=== PATIENT | male | born 1960 | race American Indian/Alaskan Native ===

== ENCOUNTER 2017-05-22 19:45 | Emergency (ER) | payer OTHER ==
[2017-05-22 22:17] LABS: Basophils % (Auto) 0.7 % (0.0-1.8); Eosinophils # (Auto) 0.5 K/mm3 (0.0-0.4); Eosinophils % (Auto) 7.3 % (0.0-4.3); Hematocrit 40.5 % (35.5-45.6); Hemoglobin 13.4 gm/dl (11.8-15.2); Lymphocytes % (Auto) 44.4 % (13.4-35.0); Mean Corpuscular HGB Conc 33 % (32-34); Mean Corpuscular Hemoglobin 31 pg (28-32); Mean Corpuscular Volume 93 fl (84-94); Monocytes # (Auto) 0.5 K/mm3 (0.0-0.8); Monocytes % (Auto) 7.8 % (0.0-7.3); Platelet Count 253 K/mm3 (140-440); Red Blood Count 4.35 M/mm3 (3.65-5.03); Red Cell Distribution Width 14.1 % (13.2-15.2)
[2017-05-22 22:32] LABS: Alanine Aminotransferase 12 units/L (7-56); Albumin 4.1 g/dL (3.9-5); BUN/Creatinine Ratio 18; Blood Urea Nitrogen 16 mg/dL (9-20); Hemolysis Index 4; Lipase 111 units/L (13-60)
--- NOTE | 2017-05-22 23:26 | XRay Report ---
FINAL REPORT PROCEDURE: Abdomen. TECHNIQUE: Supine and upright views. HISTORY: Abdominal pain. COMPARISON: No prior studies are available for comparison. FINDINGS: The bowel gas pattern is normal. There are no signs of obstruction. There is no evidence of pneumoperitoneum. The soft tissues are unremarkable. There are degenerative changes throughout the lumbar spine. There is osteoarthritis involving both hip joints. IMPRESSION: Degenerative disease as described. No evidence of acute abdominal disease.
[2017-05-22 23:54] LABS: Bilirubin,Urine NEG (Negative); Blood,Urine MOD (Negative); Color,Urine Yellow (Yellow); Mucus,Urine 2+ /HPF; Nitrite,Urine NEG (Negative); Protein,Urine <15 mg/dL mg/dL (Negative); Urobilinogen,Urine < 2.0 mg/dL (<2.0)
--- NOTE | 2017-05-23 07:57 | Emergency Department Report ---
ED Abdominal Pain HPI - General Chief Complaint: Abdominal Pain Stated Complaint: ABDOMINAL PAIN,CONSTIPATION Time Seen by Provider: 05/23/17 07:43 Source: patient Mode of arrival: Ambulatory Limitations: No Limitations - History of Present Illness Initial Comments: Patient is 57-year-old male with no significant positive medical history presented to the ER with a chief complaint of left LOWER QUADRANT PAIN FOR THE LAST 3 WEEKS ASSOCIATED WITH CONSTIPATION. PATIENT STATED THAT HE DID NOT HAVE ANY BOWEL MOVEMENT FOR THE LAST 3 WEEKS. HE REPORTED THAT HE IS HAVING TROUBLE EATING BECAUSE OF THE SORENESS WHEN HE EATS HE WILL THE PAIN. Patient reported some loss of weight patient attributed that to his not eating well. Patient denied any fever, nausea or vomiting no diarrhea. MD Complaint: abdominal pain -: Gradual, week(s) Location: LUQ, LLQ Radiation: none Severity scale (0 -10): 0 Quality: fullness, sharp Improves With: bowel movement Worsens With: eating Associated Symptoms: denies other symptoms - Related Data Home Medications Medication Instructions Recorded Confirmed Last Taken No Known Home Medications [No 05/22/17 05/22/17 Unknown Reported Home Medications] Allergies Allergy/AdvReac Type Severity Reaction Status Date / Time No Known Allergies Allergy Unverified 05/22/17 22:03 ED Review of Systems ROS: Stated complaint: ABDOMINAL PAIN,CONSTIPATION Other details as noted in HPI Comment: All other systems reviewed and negative Respiratory: denies: cough, shortness of breath, SOB with exertion Cardiovascular: denies: chest pain, palpitations Gastrointestinal: abdominal pain, constipation. denies: nausea, vomiting, diarrhea, hematemesis, melena, hematochezia Neurological: denies: headache, weakness, numbness, paresthesias ED Past Medical Hx - Past Medical History Hx Hypertension: Yes Additional medical history: Chronic Back Pain - Surgical History Past Surgical History?: No - Social History Smoking Status: Current Every Day Smoker Substance Use Type: Alcohol - Medications Home Medications: Home Medications Medication Instructions Recorded Confirmed Last Taken Type No Known Home Medications [No 05/22/17 05/22/17 Unknown History Reported Home Medications] ED Physical Exam - General Limitations: No Limitations General appearance: alert, in no apparent distress - Head Head exam: Present: atraumatic, normocephalic, normal inspection - Eye Eye exam: Present: normal appearance, PERRL - ENT ENT exam: Present: normal exam, normal orophraynx, mucous membranes moist - Neck Neck exam: Present: normal inspection, full ROM. Absent: tenderness, meningismus, lymphadenopathy - Respiratory Respiratory exam: Present: normal lung sounds bilaterally. Absent: respiratory distress, wheezes, rales, rhonchi, stridor, chest wall tenderness, accessory muscle use, decreased breath sounds, prolonged expiratory - Cardiovascular Cardiovascular Exam: Present: regular rate, normal rhythm, normal heart sounds - GI/Abdominal GI/Abdominal exam: Present: soft, tenderness (left upper and lower quadrant tenderness), normal bowel sounds. Absent: distended, guarding, rebound, rigid, organomegaly, mass, bruit, pulsatile mass, hernia - Extremities Exam Extremities exam: Present: normal inspection, full ROM, normal capillary refill. Absent: tenderness, pedal edema, calf tenderness - Back Exam Back exam: Present: normal inspection, full ROM. Absent: tenderness, CVA tenderness (R), CVA tenderness (L), muscle spasm, paraspinal tenderness, vertebral tenderness - Neurological Exam Neurological exam: Present: alert, oriented X3, CN II-XII intact, normal gait, reflexes normal. Absent: abnormal gait, motor sensory deficit - Skin Skin exam: Present: warm, intact, normal color. Absent: cyanosis, diaphoretic, erythema ED Course Vital Signs 05/22/17 05/22/17 05/23/17 21:39 21:55 03:07 Temperature 98.0 F 98 F 97.8 F Pulse Rate 70 66 55 L Respiratory 18 16 18 Rate Blood Pressure 156/99 156/99 132/83 Blood Pressure [Left] O2 Sat by Pulse 100 100 98 Oximetry 05/23/17 07:06 Temperature 98.1 F Pulse Rate 57 L Respiratory 18 Rate Blood Pressure Blood Pressure 112/89 [Left] O2 Sat by Pulse 98 Oximetry ED Medical Decision Making - Lab Data Result diagrams: 05/22/17 22:08 05/22/17 22:08 - Radiology Data Radiology results: report reviewed Referring Physician: ESCOBAR GANDARA Patient Name: LIYA CAMERON Date of : 1960 Sex: Male Report Date: 2017-05-23 Report Status: [place] [id number] Cat Scan Report Signed Patient: LIYA CAMERON MR#: [id number] : 1960 Acct:[id number] Age/Sex: 57 / M ADM Date: 05/22/17 Loc: ED Attending Dr: Ordering Physician: ESCOBAR GANDARA Date of Service: 05/23/17 Procedure(s): CT abdomen pelvis w con Accession Number(s): [id number] cc: ESCOBAR GANDARA CT ABDOMEN PELVIS WITH CONTRAST: HISTORY: abdominal pain. COMPARISON: none. TECHNIQUE: Helical CT in 1.25mm intervals following IV contrast. Sagittal and coronal reconstructions. FINDINGS: Lung bases: Normal. Liver: Normal. Biliary system: Normal. Pancreas: Normal. Spleen: Normal. Kidneys/ureters/bladder: Normal. Adrenal glands: Normal. Aorta: Mild diffuse calcifications. No aneurysm or signs of dissection. Intestines: Within normal limits. Appendix: Normal. Pelvic viscera: Normal. Ascites: None. Adenopathy: None. Musculoskeletal: Moderate thoracolumbar spondylosis. No fracture or suspicious bony lesion. IMPRESSION: No acute abdominal process is appreciated. Transcribed By: TTR Dictated By: ISIS REID JR, MD Electronically Authenticated By: ISIS REID JR, MD Signed Date/Time: 05/23/17953 DD/ 2 TD/TT: 05/23/17953 - Medical Decision Making Patient stated that he is feeling much better. Pants completely resolved. I informed him about his CT abdomen and pelvis results and the need to follow-up with his primary care physician for possible referral for colonoscopy. Critical care attestation.: If time is entered above; I have spent that time in minutes in the direct care of this critically ill patient, excluding procedure time. ED Disposition Clinical Impression: Abdominal pain, Constipation Disposition: -01 TO HOME OR SELFCARE Is pt being admited?: No Condition: Stable Instructions: Abdominal Pain (ED), High Fiber Diet (ED), Constipation (ED) Referrals: CHELLE CARSON MD [Primary Care Provider] - 3-5 Days
--- NOTE | 2017-05-23 10:00 | Cat Scan Report ---
CT ABDOMEN PELVIS WITH CONTRAST: HISTORY: abdominal pain. COMPARISON: none. TECHNIQUE: Helical CT in 1.25mm intervals following IV contrast. Sagittal and coronal reconstructions. FINDINGS: Lung bases: Normal. Liver: Normal. Biliary system: Normal. Pancreas: Normal. Spleen: Normal. Kidneys/ureters/bladder: Normal. Adrenal glands: Normal. Aorta: Mild diffuse calcifications. No aneurysm or signs of dissection. Intestines: Within normal limits. Appendix: Normal. Pelvic viscera: Normal. Ascites: None. Adenopathy: None. Musculoskeletal: Moderate thoracolumbar spondylosis. No fracture or suspicious bony lesion. IMPRESSION: No acute abdominal process is appreciated.
[2017-05-23 11:17] VITALS: BP 151/110
== END 2017-05-23 11:12 | disposition home or self-care (01) ==
LOC: ED 19:45
DX: K59.00 Constipation, unspecified (principal); I10 Essential (primary) hypertension; M54.5 Low back pain; G89.29 Other chronic pain; F17.200 Nicotine dependence, unspecified, uncomplicated
CPT/HCPCS: 36415; 74019; 74177; 80053; 81001; 83690; 85025; 99284; Q9967

== ENCOUNTER 2021-07-27 18:52 | Emergency (ER) | payer SELFPAY ==
[2021-07-27] MEDS ORDERED: HYOSCYAMINE SUBL 0.125 MG TAB SL ONE (22:09)
--- NOTE | 2021-07-28 02:12 | XRay Report ---
CHEST AND ABDOMINAL SERIES HISTORY: Right flank pain. Chest one view: Heart size is normal. Elevation of the left hemidiaphragm is mild. There is mild asso ciated atelectasis, but the lungs are otherwise clear. Two-view abdomen: Gas is scattered throughout the abdomen greatest at the splenic flexure. No free ai r or suspicious calcification. IMPRESSION: 1. Mild colonic distention greatest at the splenic flexure. 2. Elevation of the left hemidiaphragm with mild atelectasis. Signer Name: Hardy Polo MD Signed: 07/27/2021 11:21 PM Workstation Name: [id number]
[2021-07-28 03:39] VITALS: BP 113/78
== END 2021-07-28 13:30 | disposition home or self-care (01) ==
LOC: ED 18:52
DX: K59.00 Constipation, unspecified (principal); Z53.21 Procedure and treatment not carried out due to patient leaving prior to being seen by health care provider
CPT/HCPCS: 74022